=== PATIENT | female | born 2005 | race Caucasian/White ===

== ENCOUNTER → 2023-03-24 15:33 | Outpatient (CLI) | payer OTHER, SELFPAY ==
--- NOTE | ~2023-03-24 | MR_ITS ---
EXAMINATION: MR knee RT wo con DATE: 03/24/2023 16:17 INDICATION: Chronic right knee pain TECHNIQUE: Magnetic resonance imaging (MRI) of the right knee was performed without intravenous contr ast. Sequences included coronal PD-weighted FSE, coronal PD-weighted FS FSE, sagittal T2-weighted FS E, sagittal PD-weighted FS FSE and axial PD weighted fat saturated FSE. COMPARISON: None. FINDINGS: Medial compartment: Medial meniscus is normal. Articular cartilage is normal. Lateral compartment: Lateral meniscus is normal. Articular cartilage is normal. Patellofemoral compartment: Articular cartilage is normal. Ligaments and tendons: Anterior and posterior cruciate ligaments are normal. The medial collateral ligament and fibular rico ateral ligament complex are normal. The extensor mechanism is normal. The visualized medial and later al hamstring tendons as well as the iliotibial band are normal. Fluid: Physiologic amount of fluid in the joint space. No loose osteochondral bodies identified. Small multi lobulated ganglion cyst measuring 6 x 5 x 5 mm along the posterior margin of the proximal tendon of t he medial head of the gastrocnemius. Osseous/other: There is minimal increased fluid signal associated with a likely involuting small cortical desmoid at the posterior metaphysis cephalad to the posterior weightbearing medial femoral condyle. Otherwise n ormal marrow signal. No fracture or pathologic marrow replacing process. IMPRESSION: 1. Normal cartilage, menisci and stabilizing ligaments and tendons at the right knee. 2. Small likely involuting cortical desmoid at the posterior medial metaphyseal region of the distal femur. Reviewed, dictated and finalized at location A. [employer]
== END ==
PROVIDERS: PCP Orthopaedic Surgery; Visit Provider Orthopaedic Surgery
DX: M25.561 Pain in right knee (principal); G89.29 Other chronic pain
CPT/HCPCS: 73721